=== PATIENT | male | born 1990 | race Two or more races ===

== ENCOUNTER 2019-09-08 21:11 | Emergency (ER) | payer OTHER ==
[~2019-09-08] VITALS: Ht 177.8 cm; Wt 99.8 kg
[2019-09-08 21:15] VITALS: BP 160/91; Ht 177.8 cm; Wt 99.8 kg
== END 2019-09-08 22:32 | disposition home or self-care (01) ==
LOC: ED 21:11
DX: S40.862A Insect bite (nonvenomous) of left upper arm, initial encounter (principal); W57.XXXA Bitten or stung by nonvenomous insect and other nonvenomous arthropods, initial encounter; Y93.89 Activity, other specified; Y92.89 Other specified places as the place of occurrence of the external cause; Y99.8 Other external cause status
CPT/HCPCS: J7512